=== PATIENT | female | born 2000 | race Two or more races ===

== ENCOUNTER 2021-02-12 19:22 | Emergency (ER) | payer OTHER ==
[~2021-02-12] VITALS: Ht 165.1 cm; Wt 77.1 kg
[2021-02-12 19:55] LABS: Basophils # (auto) 0 10 ^3/uL (0-0.2); Basophils % (auto) 0.2 % (0.0-2.0); Eosinophils # (auto) 0 10 ^3/uL (0-0.8); Eosinophils % (auto) 0.1 % (0.0-7.0); Hematocrit 42.2 % (36.0-46.0); Hemoglobin 14.8 g/dL (12.2-16.2); Lymphocytes % (auto) 6.7 % (10.0-50.0); Mean Corpuscular Hemoglobin 31.3 pg (28.0-32.0); Mean Corpuscular Volume 89.3 fL (80.0-100.0); Monocytes # (auto) 0.5 10 ^3/uL (0-1.3); Monocytes % (auto) 3.7 % (0.0-12.0); Neutrophils # (auto) 12.7 10 ^3/uL (1.6-8.6); Neutrophils % (auto) 89.3 % (37.0-80.0); Platelet Count (auto) 185 10^3/uL (140-450); Red Blood Cells 4.72 10^6/uL (4.0-5.20); White Blood Cell 14.2 10^3/uL (4.4-10.8)
[2021-02-12 20:08] LABS: Albumin 3.8 g/dL (3.4-5.0); Calcium 9.2 mg/dL (8.5-10.1); Potassium 3.7 mmol/L (3.5-5.1)
[2021-02-12 20:11] LABS: Bilirubin, Total 0.7 mg/dL (0.2-1.0); Total Protein 7.9 g/dL (6.4-8.2)
[2021-02-12] MEDS ORDERED: ONDANSETRON HCL 4 MG/2 ML VIAL IV ONE (20:15)
[2021-02-12] MEDS ORDERED: FAMOTIDINE (10MG/ML) 2ML VL IV ONE (20:15)
[2021-02-12] MEDS ORDERED: SODIUM CHLORIDE 0.9% 1,000 ML IV ONE (20:15)
[2021-02-12 20:17] LABS: Urine Bacteria NONE SEEN /hpf (None Seen); Urine Blood Negative /uL (Negative); Urine Mucus FEW (None Seen); Urine Specific Gravity 1.027 (1.001-1.035); Urine WBC 1 /hpf (0 - 5)
[2021-02-12] MEDS ORDERED: ACETAMINOPHEN 325 MG TAB PO ONE (22:15)
[2021-02-13 00:05] VITALS: BP 101/54
[2021-02-13] MEDS ORDERED: CIPR-173 PO (02:53)
== END 2021-02-13 03:09 | disposition home or self-care (01) ==
LOC: ER 19:22
DX: O23.41 Unspecified infection of urinary tract in pregnancy, first trimester (principal); Z90.49 Acquired absence of other specified parts of digestive tract; Z3A.09 9 weeks gestation of pregnancy
CPT/HCPCS: 36415; 76801; 80053; 81001; 82150; 83605; 83690; 83735; 84702; 85025; 96361; 96374; 96375; 99284; J2405; J3490; J7030

== ENCOUNTER 2021-03-06 20:40 | Emergency (ER) | payer OTHER ==
[~2021-03-06] VITALS: Ht 165.1 cm; Wt 83.9 kg
[~2021-03-06 20:40] MED LIST: CIPR-173 PO
[2021-03-06 23:29] LABS: Basophils # (auto) 0 10 ^3/uL (0-0.2); Basophils % (auto) 0.2 % (0.0-2.0); Eosinophils # (auto) 0.1 10 ^3/uL (0-0.8); Hematocrit 38.1 % (36.0-46.0); Hemoglobin 13.6 g/dL (12.2-16.2); Mean Corpuscular Hemoglobin 32.1 pg (28.0-32.0); Mean Corpuscular Hgb Conc. 35.7 g/dL (32.0-36.0); Mean Corpuscular Volume 89.9 fL (80.0-100.0); Monocytes # (auto) 0.5 10 ^3/uL (0-1.3); Monocytes % (auto) 4.8 % (0.0-12.0); Platelet Count (auto) 180 10^3/uL (140-450); Red Blood Cells 4.24 10^6/uL (4.0-5.20); Red Cell Distribution Width 12.9 % (11.8-14.3); White Blood Cell 10.7 10^3/uL (4.4-10.8)
[2021-03-06 23:48] LABS: Albumin 3.3 g/dL (3.4-5.0); BUN/Creatinine Ratio 17.8; Calcium 8.8 mg/dL (8.5-10.1); Potassium 3.4 mmol/L (3.5-5.1)
[2021-03-06 23:51] LABS: Bilirubin, Total 0.3 mg/dL (0.2-1.0)
[2021-03-07 01:35] VITALS: BP 122/80
== END 2021-03-07 01:49 | disposition home or self-care (01) ==
LOC: ER 20:42
DX: O20.0 Threatened abortion (principal); Z90.49 Acquired absence of other specified parts of digestive tract; Z3A.12 12 weeks gestation of pregnancy
CPT/HCPCS: 36415; 76801; 80053; 84702; 85025